=== PATIENT | male | born 1980 | race Caucasian/White ===

== ENCOUNTER 2024-05-31 14:48 | Emergency (ER) | payer BC ==
[~2024-05-31] VITALS: Ht 167.6 cm; Wt 79.4 kg
[2024-05-31 14:55] VITALS: BP_SYST 142; PULSE 96; RESP 16; TEMP 98.7; O2SAT 96
[2024-05-31] MEDS: DIPHTH,PERTUSS(ACELL),TET VAC 0.5 ML VIAL (Tdap) I.M. ONE (18:33)
[2024-05-31] MEDS ORDERED: HYDR-3917 PO (18:59)
[2024-05-31] MEDS ORDERED: CEPH-548 PO (18:59)
[2024-05-31 19:20] VITALS: BP_SYST 142; PULSE 96; RESP 16; TEMP 98.7; O2SAT 96
== END 2024-05-31 19:20 | disposition home or self-care (01) ==
LOC: SED 14:48
DX: S62.631B Displaced fracture of distal phalanx of left index finger, initial encounter for open fracture (principal); Z79.899 Other long term (current) drug therapy; Z79.2 Long term (current) use of antibiotics; W45.8XXA Other foreign body or object entering through skin, initial encounter; Y93.89 Activity, other specified; Y92.89 Other specified places as the place of occurrence of the external cause; Y99.8 Other external cause status
CPT/HCPCS: 73140; 90715; 99283